=== PATIENT | male | born 1995 | race Two or more races ===

== ENCOUNTER 2018-01-28 06:44 | Day surgery (SDC) | payer MEDICAID ==
[~2018-01-28] VITALS: Ht 185.4 cm; Wt 95.3 kg
[2018-01-28] MEDS ORDERED: PROPOFOL 200MG/20ML VIAL IV ONE (08:57)
[2018-01-28] MEDS ORDERED: NEOSTIGMINE METHYLSULFATE 1MG/ML 10 ML VIAL ONE (08:57)
[2018-01-28] MEDS ORDERED: ROCURONIUM BROMIDE 10MG/ML VIAL 5ML IV ONE (08:57)
[2018-01-28] MEDS ORDERED: FENTANYL CITRATE/PF 50MCG/ML 2ML VIAL ONE (08:57)
[2018-01-28] MEDS ORDERED: MIDAZOLAM HCL 2 MG/2 ML VIAL ONE (08:57)
[2018-01-28] MEDS ORDERED: GLYCOPYRROLATE 0.2 MG/ML 2ML VIAL ONE (08:57)
[2018-01-28] MEDS ORDERED: LIDOCAINE HCL/PF 1% 10 MG/ML 30ML VIAL ONE (09:25)
[2018-01-28] MEDS ORDERED: BUPIVACAINE HCL 0.5% (5MG/ML) 50ML ONE (09:25)
[2018-01-28] MEDS ORDERED: LIDOCAINE HCL/EPINEPHRINE 1%-EPI 1:100,000 30 ML VIAL INFIL ONE (09:25)
[2018-01-28] MEDS ORDERED: BACITRACIN 50,000 UNITS/VIAL ONE (11:11)
[2018-01-28] MEDS ORDERED: NORMAL SALINE 0.9% 10 ML SYR ONE (11:11)
[2018-01-28 11:30] VITALS: BP 123/71
[2018-01-28] MEDS ORDERED: MORPHINE SULFATE 4 MG/ML CPJ (NOT FOR IM USE) IV PRN (11:30)
== END 2018-01-28 12:30 | disposition home or self-care (01) ==
LOC: OR 06:44
PROVIDERS: ATTEND Surgery
DX: L05.91 Pilonidal cyst without abscess (principal)
CPT/HCPCS: 11771; 88304; A4216; J2250; J2270; J2710; J3010; J3490; J7120; J2704